=== PATIENT | female | born 1955 | race African-American/Black ===

== ENCOUNTER 2018-02-18 13:22 | Emergency (ER) | payer MEDICAID, OTHER ==
[~2018-02-18] VITALS: Ht 167.6 cm; Wt 111.0 kg
[~2018-02-18 13:22] MED LIST: CARI350T27; HYDR-2510; HYDR-4005; UNK HTN MEDS; VERA-4
[2018-02-18 14:30] LABS: BASOPHILS % 0.6 % (0.0-2.0); EOSINOPHILS % 1.3 % (0.0-5.0); HEMATOCRIT. 42.4 % (36.0-48.0); HEMOGLOBIN. 14.4 g/dL (12.0-16.0); LYMPHOCYTES % 17.6 % (20.0-50.0); MEAN CORPUSCULAR HEMOGLOBIN 29.1 pg (28.0-32.0); MEAN CORPUSCULAR VOLUME 85.5 fL (81.0-99.0); MEAN PLATELET VOLUME 8.6 fl (7.4-10.4); MONOCYTES % 5.8 % (2.0-8.0); NEUTROPHILS % 74.7 % (40.0-76.0); PLATELET 312 x1000/uL (130-400); RED BLOOD CELL COUNT 4.96 mill/uL (4.2-5.4); RED CELL DISTRIBUTION WIDTH 14.3 % (11.6-14.6)
[2018-02-18 14:38] LABS: CHLORIDE 107 mEq/L (98-107)
[2018-02-18 14:39] LABS: PROTHROMBIN TIME 10.5 sec (9.4-11.6)
[2018-02-18 16:00] LABS: CLARITY URINE CLEAR (CLEAR); COLOR URINE YELLOW (YELLOW); KETONES URINE NEGATIVE (NEGATIVE); LEUKOCYTE ESTERASE URINE 1+ (NEGATIVE); NITRITE URINE NEGATIVE (NEGATIVE); OCCULT BLOOD URINE TRACE (NEGATIVE); PH URINE 5.5 (4.5-8.0); PROTEIN URINE NEGATIVE (NEGATIVE); SPECIFIC GRAVITY URINE 1.022 (1.005-1.030)
[2018-02-18] MEDS ORDERED: KETOROLAC 60MG/2ML VIAL IM ONE (17:30)
[2018-02-18] MEDS ORDERED: AMOXICILLIN/POTASSIUM CLAVULANATE 875/125MG TAB PO ONE (18:45)
[2018-02-18 19:03] VITALS: BP 148/86
== END 2018-02-18 19:04 | disposition home or self-care (01) ==
LOC: ER 14:53
DX: J32.9 Chronic sinusitis, unspecified (principal); D72.829 Elevated white blood cell count, unspecified; I51.7 Cardiomegaly; I10 Essential (primary) hypertension; Z88.7 Allergy status to serum and vaccine
CPT/HCPCS: 36415; 71045; 80053; 81003; 83605; 84484; 85025; 85610; 93005; 96372; 99285; J1885

== ENCOUNTER 2019-02-11 12:03 | Emergency (ER) | payer OTHER ==
[~2019-02-11] VITALS: Ht 167.6 cm; Wt 110.0 kg
[2019-02-11] MEDS ORDERED: ONDANSETRON HCL 4MG/2ML INJ IV STA (13:54)
[2019-02-11] MEDS ORDERED: SODIUM CHLORIDE 0.9% 1,000 ML IV ONE (13:54)
[2019-02-11] MEDS ORDERED: AMLODIPINE 5MG TABLET PO ONE (14:00)
[2019-02-11 14:27] LABS: EOSINOPHILS % 0.5 % (0.0-5.0); HEMATOCRIT. 37.7 % (36.0-48.0); HEMOGLOBIN. 12.4 g/dL (12.0-16.0); LYMPHOCYTES % 16.2 % (20.0-50.0); MEAN CORPUSCULAR HEMOGLOBIN 27.9 pg (28.0-32.0); MEAN PLATELET VOLUME 7.6 fl (7.4-10.4); MONOCYTES % 4.7 % (2.0-8.0); NEUTROPHILS % 77.6 % (40.0-76.0); PLATELET 503 x1000/uL (130-400); RED BLOOD CELL COUNT 4.43 mill/uL (4.2-5.4); RED CELL DISTRIBUTION WIDTH 13.9 % (11.6-14.6)
[2019-02-11 14:38] LABS: CHLORIDE 112 mEq/L (98-107)
[2019-02-11] MEDS ORDERED: SODIUM CHLORIDE 0.9% 1000ML BAG (SEPSIS BOLUS) IV ONE (14:45)
[2019-02-11 15:29] LABS: CLARITY URINE CLOUDY (CLEAR); COLOR URINE YELLOW (YELLOW); KETONES URINE NEGATIVE (NEGATIVE); LEUKOCYTE ESTERASE URINE 1+ (NEGATIVE); NITRITE URINE NEGATIVE (NEGATIVE); OCCULT BLOOD URINE NEGATIVE (NEGATIVE); PROTEIN URINE NEGATIVE (NEGATIVE); SPECIFIC GRAVITY URINE 1.018 (1.005-1.030)
[2019-02-11] MEDS ORDERED: CEFTRIAXONE 1 G PREMIX 50 ML IV ONE (16:00)
[2019-02-11] MEDS ORDERED: ONDANSETRON HCL 4MG/2ML INJ IV ONE (17:00)
[2019-02-11] MEDS ORDERED: METOCLOPRAMIDE HCL 10MG/2ML VIAL IV ONE (20:15)
[2019-02-11] MEDS ORDERED: LORAZEPAM 0.5MG TABLET PO ONE (20:30)
[2019-02-11 20:57] VITALS: BP 175/80
== END 2019-02-11 21:10 | disposition short-term general hospital (02) ==
LOC: ER 12:03 → CANRESERV 20:48 → ENRESERV 20:48 → ER 21:10 → CANBEDREQ 23:12
DX: N39.0 Urinary tract infection, site not specified (principal); D72.829 Elevated white blood cell count, unspecified; F41.9 Anxiety disorder, unspecified; I10 Essential (primary) hypertension; Z98.1 Arthrodesis status; Z88.7 Allergy status to serum and vaccine
CPT/HCPCS: 36415; 71045; 80053; 81003; 83605; 85025; 87040; 87086; 93005; 96361; 96365; 96375; 96376; 99285; J0696; J2405; J2765; J7030; Z7610

== ENCOUNTER 2019-12-12 16:13 | Emergency (ER) | payer OTHER ==
[~2019-12-12] VITALS: Ht 167.6 cm; Wt 112.0 kg
[~2019-12-12 16:13] MED LIST changes: -VERA-4; +VERA240T14
[2019-12-12] MEDS ORDERED: SODIUM CHLORIDE 0.9% 1,000 ML IV ONE (18:19)
[2019-12-12] MEDS ORDERED: ALBUTEROL (0.083%) 2.5MG/3ML NEB HHN STA (18:19)
[2019-12-12] MEDS ORDERED: IPRATROPIUM BROMIDE (0.02%) 0.5MG/2.5ML NEB HHN STA (18:19)
[2019-12-12 18:58] LABS: BASOPHILS % 0.8 % (0.0-2.0); EOSINOPHILS % 0.8 % (0.0-5.0); HEMATOCRIT. 47.7 % (36.0-48.0); HEMOGLOBIN. 15.9 g/dL (12.0-16.0); LYMPHOCYTES % 22.6 % (20.0-50.0); MEAN CORPUSCULAR HEMOGLOBIN 29.1 pg (28.0-32.0); NEUTROPHILS % 66.8 % (40.0-76.0); PLATELET 303 x1000/uL (130-400); RED BLOOD CELL COUNT 5.48 mill/uL (4.2-5.4); RED CELL DISTRIBUTION WIDTH 15.1 % (11.6-14.6)
[2019-12-12 19:06] LABS: CHLORIDE 106 mEq/L (98-107)
[2019-12-12 19:36] LABS: CLARITY URINE TURBID (CLEAR); COLOR URINE DARK YELLOW (YELLOW); KETONES URINE TRACE (NEGATIVE); LEUKOCYTE ESTERASE URINE 2+ (NEGATIVE); NITRITE URINE NEGATIVE (NEGATIVE); OCCULT BLOOD URINE NEGATIVE (NEGATIVE); PROTEIN URINE 3+ (NEGATIVE); SPECIFIC GRAVITY URINE 1.028 (1.005-1.030)
[2019-12-12] MEDS ORDERED: PIPERACILLIN/TAZ 3.375G PREMIX 50 ML IV SCH (20:00)
[2019-12-12] MEDS ORDERED: SODIUM CHLORIDE 0.9% 1000ML BAG (SEPSIS BOLUS) IV ONE (20:30)
[2019-12-12] MEDS ORDERED: LORAZEPAM 1MG TABLET PO ONE (21:45)
[2019-12-12 21:55] VITALS: BP 149/90
== END 2019-12-12 22:48 | disposition short-term general hospital (02) ==
LOC: ER 16:13
DX: A41.9 Sepsis, unspecified organism (principal); N39.0 Urinary tract infection, site not specified; J40 Bronchitis, not specified as acute or chronic; I10 Essential (primary) hypertension
CPT/HCPCS: 36415; 71045; 80053; 81003; 83605; 83880; 84484; 85025; 87040; 87086; 87804; 93005; 94640; 96361; 96365; 99291; J2543; J7030; Z7610

== ENCOUNTER 2021-10-14 14:57 | Emergency (ER) | payer MEDICARE, OTHER ==
[~2021-10-14] VITALS: Ht 167.6 cm; Wt 107.0 kg
[~2021-10-14 14:57] MED LIST changes: -HYDR-2510; +HYDR50TA; -VERA240T14; +VERA240T32
[2021-10-14 16:22] LABS: CHLORIDE 110 mEq/L (98-107); HEMATOCRIT. 44.2 % (36.0-48.0); HEMOGLOBIN. 14.7 g/dL (12.0-16.0); MEAN CORPUSCULAR HEMOGLOBIN 28.1 pg (28.0-32.0); MEAN CORPUSCULAR VOLUME 84.5 fL (81.0-99.0); MEAN PLATELET VOLUME 8.6 fl (7.4-10.4); PLATELET 344 x1000/uL (130-400); RED BLOOD CELL COUNT 5.24 mill/uL (4.2-5.4); RED CELL DISTRIBUTION WIDTH 14.3 % (11.6-14.6)
[2021-10-14 19:12] LABS: PLATELET ESTIMATE NORMAL
[2021-10-14 21:40] VITALS: BP 185/90
== END 2021-10-14 21:02 | disposition left against medical advice (07) ==
LOC: ER 14:57
DX: B34.9 Viral infection, unspecified (principal); I10 Essential (primary) hypertension; Z88.7 Allergy status to serum and vaccine
CPT/HCPCS: 36415; 71045; 80053; 83605; 85025; 93005; 99285

== ENCOUNTER 2023-04-19 12:23 | Emergency (ER) | payer MEDICARE, OTHER ==
[~2023-04-19] VITALS: Ht 167.6 cm; Wt 108.0 kg
[~2023-04-19 12:23] MED LIST changes: -VERA240T32; +VERA240T94
[2023-04-19 12:25] VITALS: O2SAT 99
[2023-04-19 12:56] LABS: EOSINOPHILS % 1.7 % (0.0-5.0); HEMATOCRIT. 42.5 % (36.0-48.0); HEMOGLOBIN. 14.2 g/dL (12.0-16.0); LYMPHOCYTES % 28.5 % (20.0-50.0); MEAN CORPUSCULAR HEMOGLOBIN 28.6 pg (28.0-32.0); MEAN CORPUSCULAR VOLUME 85.8 fL (81.0-99.0); MEAN PLATELET VOLUME 9.1 fl (7.4-10.4); NEUTROPHILS % 63.8 % (40.0-76.0); PLATELET 304 x1000/uL (130-400); RED BLOOD CELL COUNT 4.96 mill/uL (4.2-5.4); RED CELL DISTRIBUTION WIDTH 14.3 % (11.6-14.6)
[2023-04-19 13:04] LABS: CHLORIDE 110 mEq/L (98-107)
[2023-04-19] MEDS ORDERED: KETOROLAC 60MG/2ML VIAL IM STA (20:52)
[2023-04-19] MEDS ORDERED: CYCLOBENZAPRINE 10MG TABLET PO ONE (21:00)
[2023-04-19] MEDS ORDERED: SODIUM CHLORIDE 0.9% 1,000 ML IV ONE (21:15)
[2023-04-20 00:54] LABS: CLARITY URINE CLEAR (CLEAR); COLOR URINE YELLOW (YELLOW); KETONES URINE NEGATIVE (NEGATIVE); LEUKOCYTE ESTERASE URINE NEGATIVE (NEGATIVE); NITRITE URINE NEGATIVE (NEGATIVE); OCCULT BLOOD URINE NEGATIVE (NEGATIVE); PH URINE 7.5 (4.5-8.0); PROTEIN URINE NEGATIVE (NEGATIVE); SPECIFIC GRAVITY URINE 1.005 (1.005-1.030); UROBILINOGEN URINE 0.2 E.U./dL (0.2-1.0)
[2023-04-20 03:19] VITALS: BP 155/81; PULSE 80; RESP 20; TEMP 98.5
== END 2023-04-20 03:20 | disposition home or self-care (01) ==
LOC: ER 12:23
DX: R25.1 Tremor, unspecified (principal); M54.2 Cervicalgia; M62.838 Other muscle spasm; I10 Essential (primary) hypertension
CPT/HCPCS: 99284; 96360; 80053; 85025; 36415; 93005; 96372; 81003; J1885

== ENCOUNTER 2024-06-17 16:56 | Emergency (ER) | payer MEDICARE, OTHER ==
[~2024-06-17] VITALS: Ht 170.2 cm; Wt 100.0 kg
[2024-06-17 16:58] VITALS: O2SAT 98
[2024-06-17 17:03] VITALS: BP 160/88; PULSE 110; RESP 16; TEMP 98.2; O2SAT 95
[2024-06-18 00:10] LABS: BASOPHILS % 0.9 % (0.0-2.0); EOSINOPHILS % 1.8 % (0.0-5.0); HEMATOCRIT. 43.7 % (36.0-48.0); HEMOGLOBIN. 14.5 g/dL (12.0-16.0); LYMPHOCYTES % 37.5 % (20.0-50.0); MEAN CORPUSCULAR HEMOGLOBIN 29.5 pg (28.0-32.0); MEAN CORPUSCULAR HGB CONC 33.2 g/dL (31.0-37.0); MEAN CORPUSCULAR VOLUME 88.8 fL (81.0-99.0); MEAN PLATELET VOLUME 9.2 fl (7.4-10.4); MONOCYTES % 5.3 % (2.0-8.0); NEUTROPHILS % 54.5 % (40.0-76.0); PLATELET 284 x1000/uL (130-400); RED BLOOD CELL COUNT 4.92 mill/uL (4.2-5.4); RED CELL DISTRIBUTION WIDTH 13.6 % (11.6-14.6); WHITE BLOOD COUNT 15.9 x1000/uL (4.5-11.0)
[2024-06-18 00:19] LABS: CHLORIDE 105 mEq/L (98-107); POTASSIUM 3.7 mEq/L (3.5-5.1); SODIUM 138 mEq/L (136-145)
[2024-06-18 00:20] LABS: CALCIUM 10.8 mg/dL (8.7-10.4); CARBON DIOXIDE 29 mEq/L (21-32)
[2024-06-18 00:25] LABS: CREATININE 0.7 mg/dL (0.6-1.0); GLUCOSE 72 mg/dL (70-105); UREA NITROGEN BLOOD 12 mg/dL (9-23)
== END 2024-06-18 00:51 | disposition home or self-care (01) ==
LOC: ER 16:56
DX: E11.649 Type 2 diabetes mellitus with hypoglycemia without coma (principal); Z79.899 Other long term (current) drug therapy
CPT/HCPCS: 36415; 80048; 82962; 85025; 99283